=== PATIENT | male | born 1975 | race Caucasian/White ===

== ENCOUNTER 2016-03-23 02:57 | Emergency (ER) | payer OTHER ==
[~2016-03-23] VITALS: Ht 172.7 cm; Wt 100.0 kg
[2016-03-23 03:07] VITALS: TEMP 96.8
[2016-03-23 03:52] LABS: BASO % 0.2 % (0.0-2.0); EOS % 0.2 % (0-4.0); GRAN # 7.4 (1.4-6.5); GRAN % 80.9 % (42.2-75.2); HEMATOCRIT 43.4 % (42.0-52.0); HEMOGLOBIN 15.9 g/dl (13.5-18.0); LYMPH # 1.3 (1.2-3.4); MEAN CELL VOLUME 91 fl (80.0-100.0); MEAN CORPUSCULAR HEMOGLOBIN 33 pg (27.0-31.0); MEAN CORPUSCULAR HGB CONC 37 g/dl (33.0-37.0); MEAN PLATELET VOLUME 11.9 fl (7.4-10.4); MONO # 0.4 (0.1-0.6); MONO % 4.4 % (1.7-9.3); PLATELET COUNT 183 K/mm3 (130-400); RED BLOOD COUNT 4.77 M/mm3 (4.20-5.60); REDCELL DISTRIBUTION WIDTH-CV 12.2 % (11.5-14.5); WHITE BLOOD COUNT 9.2 K/mm3 (4.8-10.8)
[2016-03-23 04:12] LABS: ADJUSTED CALCIUM 8.8 mg/dL (8.4-10.2); ALBUMIN 4.7 gm/dL (3.5-5.0); BILIRUBIN,TOTAL 0.7 mg/dL (0.0-1.0); CALCIUM 9.4 mg/dL (8.4-10.2); CREATININE, serum 1.04 mg/dL (0.66-1.25); POTASSIUM 4.1 mmol/L (3.4-5.0)
[2016-03-23] MEDS ORDERED: ZOLOFT 25MG25 MG PO (06:09)
[2016-03-23] MEDS ORDERED: EFFE25TA PO (06:09)
[2016-03-23] MEDS ORDERED: LUNESTA 1MG TAB1 MG PO (06:10)
[2016-03-23 06:21] VITALS: BP 121/94; PULSE 103
== END 2016-03-23 06:34 | disposition home or self-care (01) ==
LOC: COL.ER 02:57
PROVIDERS: Emergency Medicine
DX: F10.120 Alcohol abuse with intoxication, uncomplicated (principal); Y90.9 Presence of alcohol in blood, level not specified
CPT/HCPCS: J2060; J2765; J7030

== ENCOUNTER 2020-10-12 17:36 | Emergency (ER) | payer OTHER ==
[~2020-10-12] VITALS: Ht 172.7 cm; Wt 88.2 kg
[~2020-10-12 17:36] MED LIST: EFFE25TA PO; LUNESTA 1MG TAB1 MG PO; ZOLOFT 25MG25 MG PO
[2020-10-12 17:43] VITALS: TEMP 97.6
[2020-10-12 18:10] LABS: BASO # 0.1 (0.0-0.2); BASO % 0.6 % (0.0-2.0); EOS # 0.1 (0.0-0.7); GRAN # 5.8 (1.4-6.5); GRAN % 69.9 % (42.2-75.2); HEMATOCRIT 47.3 % (42.0-52.0); HEMOGLOBIN 16.6 g/dl (13.5-18.0); LYMPH # 1.7 (1.2-3.4); LYMPH % 20.2 % (20.0-51.0); MEAN CELL VOLUME 96 fl (80.0-100.0); MEAN CORPUSCULAR HEMOGLOBIN 34 pg (27.0-31.0); MEAN CORPUSCULAR HGB CONC 35 g/dl (33.0-37.0); MEAN PLATELET VOLUME 11.5 fl (7.4-10.4); MONO # 0.7 (0.1-0.6); MONO % 8.1 % (1.7-9.3); PLATELET COUNT 207 K/mm3 (130-400); RED BLOOD COUNT 4.95 M/mm3 (4.20-5.60); REDCELL DISTRIBUTION WIDTH-CV 12.4 % (11.5-14.5)
[2020-10-12 18:27] LABS: ALANINE AMINOTRANSFERASE 43 U/L (4-49); ALBUMIN 4.6 gm/dL (3.5-5.0); ALKALINE PHOSPHATASE 70 U/L (50-136); ANION GAP 9 mmol/L (7-16); AST,SGOT 27 U/L (15-37); BILIRUBIN,TOTAL 0.3 mg/dL (0.0-1.0); BLOOD UREA NITROGEN 17 mg/dL (9-20); CALCIUM 9.6 mg/dL (8.4-10.2); CARBON DIOXIDE 25 mmol/L (22-30); CHLORIDE 103 mmol/L (98-107); CREATININE, serum 1.16 (0.66-1.25); GLUCOSE 92 mg/dL (74-106); POTASSIUM 4.1 mmol/L (3.4-5.0); SODIUM 137 mmol/L (137-145); TOTAL PROTEIN 7.9 gm/dL (6.4-8.2)
[2020-10-12 18:39] LABS: TROPONIN-I < 0.012 ng/mL (0.000-0.035)
[2020-10-12] MEDS ORDERED: ATIVAN 1MG T1 MG/TAB PO (19:36)
[2020-10-12 19:39] VITALS: BP 140/91; PULSE 79
== END 2020-10-12 19:41 | disposition home or self-care (01) ==
LOC: COL.ER 17:36
PROVIDERS: Physician Assistant
DX: F41.9 Anxiety disorder, unspecified (principal); F32.9 Major depressive disorder, single episode, unspecified; Z79.899 Other long term (current) drug therapy
CPT/HCPCS: J2060; J7030